=== PATIENT | male | born 1965 | race Caucasian/White ===

== ENCOUNTER → 2019-08-06 | Outpatient (CLI) | payer BC ==
[~2019-08-06] MED LIST: BENAML20/5 PO; FISH1000 PO; Glucosamine-MS1 EAC1 PO; Multiple Vitam1 EAC1 PO; Omeprazole20 M1; VITAMIN D31000 UNIT PO
== END | disposition home or self-care (01) ==
LOC: LAB SHORT 15:40 → PLD 15:40
DX: C44.41 Basal cell carcinoma of skin of scalp and neck (principal)
CPT/HCPCS: 88305